=== PATIENT | male | born 1960 | race Caucasian/White ===

== ENCOUNTER → 2017-01-05 | Outpatient (CLI) | payer BC, MEDICARE ==
[2017-01-05 09:33] LABS: BLOOD UREA NITROGEN 23 mg/dl (7-18); GLUCOSE 114 mg/dl (70-99)
[2017-01-05 09:34] LABS: ALT/SGPT 68 U/L (12-78); AST/SGOT 31 U/L (15-37); BUN/CREATININE RATIO 18.9 (10-20); CALCIUM 8.6 mg/dl (8.5-10.1); CARBON DIOXIDE 27 mmol/L (21-32); CHLORIDE 108 mmol/L (98-107); CHOLESTEROL 165 mg/dl (0-200); POTASSIUM 4.1 mmol/L (3.5-5.1); SODIUM 143 mmol/L (136-145); TRIGLYCERIDES 88 mg/dl (0-150); VERY LOW DENSITY LIPOPROT CALC 18 mg/dl
[2017-01-05 09:38] LABS: ALB/GLOB RATIO 1.1 (0.9-2); ALKALINE PHOSPHATASE 43 U/L (45-117); CHOLESTEROL/HDL RATIO 4.6; HDL CHOLESTEROL 36 mg/dl; LDL CHOLESTEROL CALCULATED 111 mg/dl
[2017-01-05 10:20] LABS: ESTIMATED AVERAGE GLUCOSE 128 mg/dl; HA1C FLAG Normal (Normal)
== END | disposition home or self-care (01) ==
LOC: C.LAB 12:18
PROVIDERS: ATTEND Nurse Practitioner
DX: R73.9 Hyperglycemia, unspecified (principal); Z12.5 Encounter for screening for malignant neoplasm of prostate; M10.9 Gout, unspecified

== ENCOUNTER → 2017-03-24 | Outpatient (CLI) | payer BC | END | disposition home or self-care (01) | LOC: C.RDSM 16:07 | PROVIDERS: ATTEND Family Medicine Sports Medicine | DX: M25.561 Pain in right knee (principal) ==

== ENCOUNTER → 2017-03-29 | Outpatient (CLI) | payer BC ==
--- NOTE | 2017-03-29 08:45 | DIAGNOSTIC IMAGING REPORT ---
MRI OF THE RIGHT KNEE CLINICAL HISTORY: Right knee pain. Joint effusion. COMPARISON STUDY: Radiographs of the right knee dated 03/24/2017. TECHNIQUE: MRI of the right knee was performed utilizing proton density, T1, and T2-weighted sequences in the axial, sagittal, coronal planes. IV contrast was not administered for this examination. FINDINGS: Menisci: There is a posterior root tear of the posterior horn of the medial meniscus. The lateral meniscus is intact. Ligaments: The anterior and posterior cruciate ligaments are intact. The medial and lateral collateral ligaments are within normal limits. Extensor mechanism: The extensor mechanism is intact. Hoffa's fat pad is normal in appearance. Articular cartilage and bone: There is mild degenerative thinning of the articular cartilage seen within all 3 compartments. Greater than 50% focal thinning is seen at the patellar apex. There are foci of greater than 50% fissuring in the articular cartilage along the weightbearing surface of the medial femoral condyle. There are bony contusions seen within the medial femoral condyle and peripherally within the medial tibial plateau. An traction type injury is suggested along the weightbearing surface in the medial compartment. Joint effusion: There is a small joint effusion. Soft tissues: There is anterior soft tissue edema. The musculature surrounding the knee joint is normal in bulk and signal intensity. IMPRESSION: 1. There is a posterior root tear involving the posterior horn of the medial meniscus. 2. The lateral meniscus, the cruciate ligaments, and the collateral ligaments are intact. 3. Small joint effusion. 4. Bony contusions are seen within the medial femoral condyle and the peripheral aspect of the medial tibial plateau, with an impaction type injury suggested along the weightbearing surface in the medial compartment. Electronically signed by: Richard Marino M.D. 03/29/2017 8:43 AM Dictated Date/Time: 03/29/2017 8:06 AM
== END | disposition home or self-care (01) ==
LOC: C.MRI 06:57
PROVIDERS: ATTEND Family Medicine Sports Medicine
DX: S83.241A Other tear of medial meniscus, current injury, right knee, initial encounter (principal); W19.XXXA Unspecified fall, initial encounter

== ENCOUNTER → 2018-01-01 | Outpatient (CLI) | payer BC ==
[2018-01-01 10:26] LABS: BLOOD UREA NITROGEN 20 mg/dl (7-18); CALCIUM 8.8 mg/dl (8.5-10.1); CARBON DIOXIDE 27 mmol/L (21-32); CREATININE 1.22 mg/dl (0.60-1.40); GLUCOSE 99 mg/dl (70-99); SODIUM 141 mmol/L (136-145)
[2018-01-01 10:31] LABS: CHOLESTEROL 160 mg/dl (0-200); LDL CHOLESTEROL CALCULATED 98 mg/dl
== END | disposition home or self-care (01) ==
LOC: C.LAB 16:34
PROVIDERS: ATTEND Family Medicine
DX: M10.9 Gout, unspecified (principal); Z13.1 Encounter for screening for diabetes mellitus; I10 Essential (primary) hypertension; Z13.220 Encounter for screening for lipoid disorders; R39.12 Poor urinary stream